=== PATIENT | male | born 1955 | race Caucasian/White ===

== ENCOUNTER 2020-05-24 07:58 | Day surgery (SDC) | payer OTHER ==
[~2020-05-24] VITALS: Ht 172.7 cm; Wt 111.4 kg
[~2020-05-24 07:58] MED LIST: ALLEGRA ALLERG180 MG PO; ASCO500 PO; ATORVASTATIN CA40 MG PO; B-121000 MC3 PO; Coumadin2 MG PO; Cymbalta20 MG PO; FEROSUL325 M1 PO; INSULIN AS100 UNIT10; INSULIN AS100 UNIT10 SC; MAGNESIUM OXID400 M1 PO; METO50ER PO; MONT10T PO; POTA10T PO; PREG300 PO; Robaxin750 MG PO; TORSE20 PO; TRAM50 PO; VITAMIN D-32000 UNIT PO
--- NOTE | 2020-05-24 09:00 | NUR ---
05/24/20 0900 Bailey Lucas PT. VERBALIZES PAIN FROM CERVICAL TO FEET. HAS CHRONIC DEGENERATIVE BONE DISEASE.
== END 2020-05-24 09:55 | disposition home or self-care (01) ==
LOC: ORSCSDS 07:58
PROVIDERS: Internal Medicine Gastroenterology
PROC: 0DBK8ZX Excision of Ascending Colon, Via Natural or Artificial Opening Endoscopic, Diagnostic (ICD-10-PCS; principal; 2020-05-24 09:30)
PROC: 0DBL8ZX Excision of Transverse Colon, Via Natural or Artificial Opening Endoscopic, Diagnostic (ICD-10-PCS; principal; 2020-05-24 09:30)
DX: Z12.11 Encounter for screening for malignant neoplasm of colon (principal); Z86.010 Personal history of colon polyps; D12.3 Benign neoplasm of transverse colon; D12.4 Benign neoplasm of descending colon; K57.30 Diverticulosis of large intestine without perforation or abscess without bleeding; K64.8 Other hemorrhoids; I10 Essential (primary) hypertension; J44.9 Chronic obstructive pulmonary disease, unspecified; E11.9 Type 2 diabetes mellitus without complications; Z79.4 Long term (current) use of insulin; Z79.01 Long term (current) use of anticoagulants; Z79.899 Other long term (current) drug therapy
CPT/HCPCS: 82947; 88305; J0330; J0461; J2405; J2704; J7120

== ENCOUNTER 2021-07-08 01:42 | Emergency (ER) | payer OTHER ==
[~2021-07-08] VITALS: Ht 172.7 cm; Wt 115.2 kg
== END 2021-07-08 06:04 | disposition home or self-care (01) ==
LOC: ER 01:42
DX: R25.2 Cramp and spasm (principal); E11.9 Type 2 diabetes mellitus without complications; Z88.8 Allergy status to other drugs, medicaments and biological substances; Z88.0 Allergy status to penicillin; Z88.4 Allergy status to anesthetic agent; Z91.041 Radiographic dye allergy status; Z79.899 Other long term (current) drug therapy; Z79.01 Long term (current) use of anticoagulants; Z79.4 Long term (current) use of insulin
CPT/HCPCS: 73502; 99283-25; A9270

== ENCOUNTER 2021-07-25 02:35 | Emergency (ER) | payer OTHER ==
[~2021-07-25] VITALS: Ht 172.7 cm; Wt 113.4 kg
== END 2021-07-25 07:09 | disposition home or self-care (01) ==
LOC: ER 02:35
DX: S70.02XA Contusion of left hip, initial encounter (principal); S70.12XA Contusion of left thigh, initial encounter; E11.9 Type 2 diabetes mellitus without complications; Z88.0 Allergy status to penicillin; Z88.1 Allergy status to other antibiotic agents; Z88.8 Allergy status to other drugs, medicaments and biological substances; Z91.041 Radiographic dye allergy status; Z79.899 Other long term (current) drug therapy; Z79.4 Long term (current) use of insulin; W19.XXXA Unspecified fall, initial encounter
CPT/HCPCS: 36415; 73502; 99283-25; A9270